=== PATIENT | female | born 1965 | race Caucasian/White ===

== ENCOUNTER 2016-04-01 11:36 | Emergency (ER) | payer BC ==
--- NOTE | 2016-04-01 13:16 | ED ---
Rah Li Aidan, scribed for Lyle Peña MD on 04/01/16 at 1304 . Abdominal Pain/Female - HPI Summary HPI Summary: 50 y/o female presents to the ED via EMS with a complaint of acute, moderate-to- severe, intermittent episodes of right-sided abdominal pain. Initially, she had roughly 1-2 episodes, lasting roughly 10 minutes each, per week. More recently, however, she has had more frequent episodes that can last up to an hour. This morning, she had a severe episode at 0830. Associated symptoms include bloating. Pt denies any flank pain, Hx of kidney stones, or changes in urination. Ct scan last November revealed no kidney stones. Hx of hernia repair in 2012. Currently, the patient has no pain and would like to be discharged home. She has agreed to follow this up with her PCP. - History of Current Complaint Stated Complaint: ABD PAIN Time Seen by Provider: 04/01/16 12:41 Hx Obtained From: Patient Hx Last Menstrual Period: 50 y/o ?: No Onset/Duration: Sudden Onset, Lasting Weeks, Still Present Timing: Intermittent Episode Lasting Severity Initially: Moderate Severity Currently: None Pain Intensity: 0 - no pain currently Pain Scale Used: 0-10 Numeric Location: Discrete At: RUQ, Discrete At: RLQ Radiates: No Character: Sharp Aggravating Factor(s): Other: - unknown Alleviating Factor(s): Other: - unknown Associated Signs and Symptoms: Positive: Other: - bloating Allergies/Adverse Reactions: Allergies Allergy/AdvReac Type Severity Reaction Status Date / Time No Known Allergies Allergy Verified 11/27/15 11:46 PMH/Surg Hx/FS Hx/Imm Hx - Surgical History Surgery Procedure, Year, and Place: HERNIA REPAIR 2013 Infectious Disease History: Denies: Traveled Outside the [place] in Last 30 Days - Family History Known Family History: Positive: Hypertension - Social History Occupation: Employed Full-time Lives: Alone Alcohol Use: None Substance Use Type: Reports: None Smoking Status (MU): Light Every Day Tobacco Smoker Type: Cigarettes Have You Smoked in the Last Year: No Review of Systems Constitutional: Negative Eyes: Negative ENT: Negative Cardiovascular: Negative Respiratory: Negative Gastrointestinal: Other - SOME BLOATING Positive: Abdominal Pain. Negative: Diarrhea, Nausea Genitourinary: Negative Musculoskeletal: Negative Skin: Negative Neurological: Negative Psychological: Normal All Other Systems Reviewed And Are Negative: Yes Physical Exam Triage Information Reviewed: Yes Vital Signs Reviewed: Yes Appearance: Positive: Well-Appearing, No Pain Distress Skin: Positive: Warm, Skin Color Reflects Adequate Perfusion, Dry Head/Face: Positive: Normal Head/Face Inspection Eyes: Positive: EOMI, BERTA ENT: Positive: Normal ENT inspection Neck: Positive: Supple, Nontender Respiratory/Lung Sounds: Positive: Clear to Auscultation, Breath Sounds Present Cardiovascular: Positive: RRR Abdomen Description: Positive: Soft Bowel Sounds: Positive: Present Musculoskeletal: Positive: Strength/ROM Intact Neurological: Positive: Sensory/Motor Intact, Alert, Oriented to Person Place, Time Psychiatric: Positive: Affect/Mood Appropriate Abdominal Pain Fem Course/Dx - Course Course Of Treatment: NO PAIN IN ED. PATIENT REPORTS SHE IS SEEING HER PRIMARY CARE DOCTOR AND SPECIALIST FOR THIS RECURRENT ABDOMINAL PAIN. DISCHARGE HOME STABLE. - Diagnoses Provider Diagnoses: Abdominal pain Discharge - Discharge Plan Condition: Stable Disposition: HOME Patient Education Materials: Abdominal Pain (ED) Forms: *Work Release Referrals: Cassandra Ramos MD [Medical Doctor] - Additional Instructions: FOLLOW UP WITH YOUR DOCTOR. RETURN TO THE EMERGENCY DEPARTMENT FOR ANY WORSENING OF YOUR CONDITION; PAIN, FEVER, VOMITING, YOU FEEL ILL OR QUESTIONS OR CONCERNS. The documentation as recorded by the Rah sanders Aidan accurately reflects the service I personally performed and the decisions made by me, Lyle Peña MD.
== END 2016-04-01 13:32 | disposition home or self-care (01) ==
LOC: ED 11:36
DX: R10.9 Unspecified abdominal pain (principal); F17.210 Nicotine dependence, cigarettes, uncomplicated; Z87.442 Personal history of urinary calculi
CPT/HCPCS: 99282

== ENCOUNTER 2022-07-20 13:36 | Inpatient (IN) ==
[2022-07-20 14:45] LABS: ABS Lymphocytes 0.7 10^3/uL (1.0-4.8); ABS Monocytes 0.2 10^3/uL (0.0-0.9); ABS Neutrophils 9.9 10^3/uL (1.5-7.6); ABS Nucleated RBC 0.01 10^3/ul; Eosinophil % 0.1 %; Hematocrit 27.9 % (35-45); Hemoglobin 9.7 g/dL (11.5-14.3); Lymphocyte % 6.5 %; Mean Corpuscular Hemoglobin 27.1 pg (27-33); Mean Corpuscular Hgb Conc 34.6 g/dL (31-36); Mean Corpuscular Volume 78.5 fL (80-97); Mean Platelet Volume 7.7 fL (7.5-11.2); Nucleated Red Blood Cells % 0.1 /100 WBC (0.0-0.4); Platelet Count 562 10^3/uL (150-450); Red Blood Count 3.56 10^6/uL (3.63-4.92); White Blood Count 10.8 10^3/uL (3.8-11.8)
[2022-07-20] MEDS ORDERED: cefTRIAXone 1 gm/50 mL D5W 1 GM/50 ML BAG IV ONE (15:02)
[2022-07-20] MEDS ORDERED: Azithromycin 500 mg/250 ml NS 500 MG/250 ML BAG IVPB ONE (15:02)
[2022-07-20 15:08] LABS: High Sens Troponin Baseline 24 pg/mL (<15)
[2022-07-20 15:24] LABS: ALT 16 U/L (7-52); Albumin 3.7 g/dL (3.2-5.2); Albumin/Globulin Ratio 1.2 (1-3); Alkaline Phosphatase 64 U/L (35-149); Blood Urea Nitrogen 34 mg/dL (6-24); CO2 Carbon Dioxide 23 mmol/L (22-32); Calcium 8.5 mg/dL (8.6-10.3); Chloride 105 mmol/L (101-111); Creatinine, Serum 1.56 mg/dL (0.51-0.95); Globulin 3.1 g/dL (2-4); Glucose 166 mg/dL (70-100); Sodium 138 mmol/L (135-145); Total Protein 6.8 g/dL (6.4-8.9); eGFR CKD-EPI 38.8 (>60)
[2022-07-20 15:34] LABS: Anion Gap 10 mmol/L (2-16)
[2022-07-20] MEDS ORDERED: Iodixanol (CONTRAST) 320 MG/ML 100 ML SDV IV ONE (15:42)
[2022-07-20 16:01] LABS: High Sensitivity Troponin 1 Hr 23 pg/mL (<15)
[2022-07-20] MEDS ORDERED: Vancomycin 1,250 MG in NS 0.9% 250 ml 250 ML IVPB ONE (16:32)
[2022-07-20 17:48] LABS: Potassium Redraw 4.2 mmol/L (3.5-5.0)
[2022-07-20 18:43] LABS: Urine Appearance Cloudy; Urine Bilirubin Negative (Negative); Urine Blood 3+ (Negative); Urine Color Yellow; Urine Glucose Negative (Negative); Urine Ketones Negative (Negative); Urine Nitrite Negative (Negative); Urine Protein 2+(100 mg/dL) (Negative); Urine Urobilinogen Negative (Negative)
[2022-07-20 18:54] LABS: Urine Bacteria Absent (Absent); Urine Red Blood Cell 3+(>10/hpf) (Absent); Urine Squamous Epithelial Cell Present (Absent); Urine White Blood Cell 2+(11-20/hpf) (Absent)
[2022-07-20] MEDS ORDERED: NS 0.9% 1000 ml BAG 1,000 ML IV SCH ×2 (19:00→19:57)
[2022-07-20] MEDS ORDERED: Enoxaparin 40 MG/0.4 ML SYR SUBCUT SCH (19:00)
[2022-07-21 06:50] LABS: ABS Lymphocytes 2.1 10^3/uL (1.0-4.8); ABS Monocytes 0.6 10^3/uL (0.0-0.9); ABS Neutrophils 6.7 10^3/uL (1.5-7.6); Eosinophil % 0.4 %; Hematocrit 23.4 % (35-45); Hemoglobin 8.1 g/dL (11.5-14.3); Lymphocyte % 22.4 %; Mean Corpuscular Hemoglobin 27.3 pg (27-33); Mean Corpuscular Hgb Conc 34.7 g/dL (31-36); Mean Corpuscular Volume 78.7 fL (80-97); Mean Platelet Volume 7.2 fL (7.5-11.2); Platelet Count 436 10^3/uL (150-450); Red Blood Count 2.97 10^6/uL (3.63-4.92); Red Cell Distribution Width 12.9 % (12-17); White Blood Count 9.5 10^3/uL (3.8-11.8)
[2022-07-21 07:25] LABS: Calcium 7.7 mg/dL (8.6-10.3); Creatinine, Serum 1.38 mg/dL (0.51-0.95); Magnesium 1.7 mg/dL (1.9-2.7); Phosphorus 3.5 mg/dL (2.5-5.0); Potassium 3.9 mmol/L (3.5-5.0); eGFR CKD-EPI 44.9 (>60)
[2022-07-21 07:38] LABS: TSH Ultra Thyroid Stim Horm 1.42 mcIU/mL (0.34-5.60)
[2022-07-21 07:46] LABS: Ferritin 116.1 ng/mL (11-307)
[2022-07-21 07:49] LABS: Folate 16.41 ng/mL (5.90-24.80)
[2022-07-21] MEDS ORDERED: Magnesium Sulfate IV 3 GM in NS 0.9% 100 ml BAG 100 ML IVPB ONE (07:55)
[2022-07-21] MEDS ORDERED: cefTRIAXone 1 gm/50 mL D5W 1 GM/50 ML BAG IV SCH ×2 (09:00→15:00)
[2022-07-21] MEDS ORDERED: Acetylcysteine INHALATION SOL 200 MG/ML NEB.SOLN 10 ML INH ONE (10:09)
[2022-07-21] MEDS ORDERED: Sodium Chloride(INHALANT) 7% 4 ML NEB.SOLN INH ONE (11:12)
[2022-07-21] MEDS ORDERED: Albuterol 2.5mg/3 ml (0.083%) NEB.SOLN INH PRN (11:30)
[2022-07-21 11:36] LABS: C Reactive Protein 69.58 mg/L (<8.01)
[2022-07-21] MEDS: methylPREDNISolone SOD SUCC 40 mg/ml 1 ml VIAL IV SCH ×2 (11:51→18:35)
[2022-07-21] MEDS ORDERED: Vancomycin per Pharmacy 1 EA NOTE FOLLOW UP SCH (14:00)
[2022-07-21] MEDS: Cefepime 2 GM in Dextrose 2 GM/50 ML BAG IV SCH (14:41)
[2022-07-21] MEDS: Vancomycin 750 MG in NS 0.9% 250 ML IVPB SCH (15:28)
[2022-07-22] MEDS: Cefepime 2 GM in Dextrose 2 GM/50 ML BAG IV SCH ×2 (02:41→13:08)
[2022-07-22] MEDS: methylPREDNISolone SOD SUCC 40 mg/ml 1 ml VIAL IV SCH ×3 (03:25→18:21)
[2022-07-22] MEDS: Vancomycin 750 MG in NS 0.9% 250 ML IVPB SCH ×2 (03:31→15:29)
[2022-07-22 06:24] LABS: ABS Lymphocytes 0.8 10^3/uL (1.0-4.8); ABS Monocytes 0.4 10^3/uL (0.0-0.9); ABS Neutrophils 9.6 10^3/uL (1.5-7.6); Hematocrit 25.4 % (35-45); Hemoglobin 8.8 g/dL (11.5-14.3); Lymphocyte % 7.2 %; Mean Corpuscular Hemoglobin 27.4 pg (27-33); Mean Corpuscular Hgb Conc 34.8 g/dL (31-36); Mean Corpuscular Volume 78.7 fL (80-97); Mean Platelet Volume 7.3 fL (7.5-11.2); Platelet Count 495 10^3/uL (150-450); Red Blood Count 3.23 10^6/uL (3.63-4.92); Red Cell Distribution Width 12.9 % (12-17); White Blood Count 10.8 10^3/uL (3.8-11.8)
[2022-07-22 06:56] LABS: Anion Gap 5 mmol/L (2-16); CO2 Carbon Dioxide 25 mmol/L (22-32); Calcium 7.9 mg/dL (8.6-10.3); Chloride 107 mmol/L (101-111); Potassium 5.3 mmol/L (3.5-5.0); Sodium 137 mmol/L (135-145)
[2022-07-22 07:02] LABS: Blood Urea Nitrogen 37 mg/dL (6-24); Creatinine, Serum 1.43 mg/dL (0.51-0.95); Glucose 152 mg/dL (70-100)
[2022-07-22] MEDS ORDERED: NS 0.9% 1000 ml BAG 1,000 ML IV SCH (07:30)
[2022-07-22 13:20] LABS: Creatinine, Serum 1.28 mg/dL (0.51-0.95); Potassium 4.6 mmol/L (3.5-5.0); eGFR CKD-EPI 49.2 (>60)
[2022-07-22] MEDS ORDERED: Vancomycin Trough Check NOTE FOLLOW UP ONE (14:30)
[2022-07-22] MEDS: Pantoprazole VIAL 40 MG VIAL IV SCH ×2 (15:27→21:22)
[2022-07-23] MEDS: Cefepime 2 GM in Dextrose 2 GM/50 ML BAG IV SCH (02:11)
[2022-07-23] MEDS: methylPREDNISolone SOD SUCC 40 mg/ml 1 ml VIAL IV SCH ×3 (03:05→18:33)
[2022-07-23] MEDS: Vancomycin 750 MG in NS 0.9% 250 ML IVPB SCH (03:11)
[2022-07-23 06:15] LABS: ABS Lymphocytes 1.1 10^3/uL (1.0-4.8); ABS Monocytes 0.7 10^3/uL (0.0-0.9); ABS Neutrophils 13.3 10^3/uL (1.5-7.6); ABS Nucleated RBC 0.02 10^3/ul; Hematocrit 26.4 % (35-45); Lymphocyte % 7.6 %; Mean Corpuscular Hemoglobin 26.5 pg (27-33); Mean Platelet Volume 7.5 fL (7.5-11.2); Nucleated Red Blood Cells % 0.2 /100 WBC (0.0-0.4); Platelet Count 520 10^3/uL (150-450); Red Blood Count 3.38 10^6/uL (3.63-4.92); Red Cell Distribution Width 13.1 % (12-17); White Blood Count 15.1 10^3/uL (3.8-11.8)
[2022-07-23 06:58] LABS: Calcium 7.7 mg/dL (8.6-10.3); Creatinine, Serum 1.19 mg/dL (0.51-0.95); Magnesium 1.6 mg/dL (1.9-2.7); Potassium 4.7 mmol/L (3.5-5.0); eGFR CKD-EPI 53.7 (>60)
[2022-07-23] MEDS ORDERED: Magnesium Sulf 4 GM/100 ML IV 4,000 MG/100 ML BAG IVPB ONE (07:12)
[2022-07-23] MEDS: Pantoprazole VIAL 40 MG VIAL IV SCH ×2 (08:36→21:16)
[2022-07-23 11:50] LABS: Rheumatoid Factor < 10 IU/mL (<15)
[2022-07-23 12:04] LABS: Activated Partial Thrombo Time 24.6 seconds (26.0-38.0); INR 1.14 (0.88-1.18)
[2022-07-23] MEDS: Heparin 5000 UNITS/ML 1 mL VIAL SUBCUT SCH ×2 (14:26→21:16)
[2022-07-24] MEDS: Heparin 5000 UNITS/ML 1 mL VIAL SUBCUT SCH ×3 (06:03→21:30)
[2022-07-24 06:14] LABS: Hematocrit 27.3 % (35-45); Hemoglobin 9.2 g/dL (11.5-14.3); Mean Corpuscular Hemoglobin 26.7 pg (27-33); Mean Corpuscular Hgb Conc 33.8 g/dL (31-36); Mean Corpuscular Volume 78.8 fL (80-97); Mean Platelet Volume 7.5 fL (7.5-11.2); Platelet Count 558 10^3/uL (150-450); Red Blood Count 3.46 10^6/uL (3.63-4.92); White Blood Count 17.1 10^3/uL (3.8-11.8)
[2022-07-24 06:35] LABS: Calcium 7.8 mg/dL (8.6-10.3); Creatinine, Serum 1.04 mg/dL (0.51-0.95); Potassium 4.5 mmol/L (3.5-5.0); eGFR CKD-EPI 63.1 (>60)
[2022-07-24] MEDS ORDERED: Furosemide 40 mg/4 ml IV VIAL IV SLOW PU ONE (07:30)
[2022-07-24 08:37] LABS: ABS Monocytes 0.9 10^3/uL (0.0-0.9); ABS Neutrophils 14.2 10^3/uL (1.5-7.6); ABS Nucleated RBC 0.01 10^3/ul; Lymphocyte % 11.7 %
[2022-07-24] MEDS: methylPREDNISolone SOD SUCC 1,000 MG in NS 0.9% 100 ml BAG 100 ML IVPB SCH (10:53)
[2022-07-24] MEDS: Pantoprazole VIAL 40 MG VIAL IV SCH ×2 (10:53→21:30)
[2022-07-24 12:50] LABS: Myeloperoxidase Antibody 5.4 U; Proteinase 3 <0.2 U
[2022-07-24 16:51] LABS: Urine Creatinine Concentration 8.26 mg/dL (20.00-320.00)
[2022-07-24] MEDS: Albuterol/Ipratropium NEB.SOL (2.5/0.5 MG) 3 ML NEB.SOLN INH PRN (21:49)
[2022-07-25] MEDS: Heparin 5000 UNITS/ML 1 mL VIAL SUBCUT SCH ×3 (05:54→21:45)
[2022-07-25 06:49] LABS: ABS Lymphocytes 2.3 10^3/uL (1.0-4.8); ABS Monocytes 0.7 10^3/uL (0.0-0.9); ABS Neutrophils 14.1 10^3/uL (1.5-7.6); ABS Nucleated RBC 0.02 10^3/ul; Hematocrit 30.6 % (35-45); Hemoglobin 10.4 g/dL (11.5-14.3); Lymphocyte % 13.5 %; Mean Corpuscular Hemoglobin 26.6 pg (27-33); Mean Corpuscular Hgb Conc 33.9 g/dL (31-36); Mean Corpuscular Volume 78.4 fL (80-97); Mean Platelet Volume 7.3 fL (7.5-11.2); Nucleated Red Blood Cells % 0.1 /100 WBC (0.0-0.4); Platelet Count 678 10^3/uL (150-450); Red Cell Distribution Width 13.4 % (12-17); White Blood Count 17.1 10^3/uL (3.8-11.8)
[2022-07-25] MEDS: Albuterol/Ipratropium NEB.SOL (2.5/0.5 MG) 3 ML NEB.SOLN INH PRN (07:13)
[2022-07-25 07:28] LABS: Albumin 3.6 g/dL (3.2-5.2); Albumin/Globulin Ratio 1.3 (1-3); Calcium 8.3 mg/dL (8.6-10.3); Creatinine, Serum 1.22 mg/dL (0.51-0.95); Globulin 2.8 g/dL (2-4); Magnesium 1.6 mg/dL (1.9-2.7); Potassium 4.6 mmol/L (3.5-5.0); Total Bilirubin 0.7 mg/dL (0.2-1.0); Total Protein 6.4 g/dL (6.4-8.9); eGFR CKD-EPI 52.1 (>60)
[2022-07-25] MEDS: Pantoprazole VIAL 40 MG VIAL IV SCH (08:53)
[2022-07-25] MEDS: methylPREDNISolone SOD SUCC 1,000 MG in NS 0.9% 100 ml BAG 100 ML IVPB SCH (08:56)
[2022-07-25] MEDS ORDERED: Magnesium Sulf 4 GM/100 ML IV 4,000 MG/100 ML BAG IVPB ONE (09:42)
[2022-07-25] MEDS ORDERED: methylPREDNISolone SOD SUCC 125 mg 2 ML VIAL IV PRN (13:51)
[2022-07-25 14:22] LABS: Hepatitis B Surface Antigen Nonreactive (Nonreactive)
[2022-07-25 14:27] LABS: Hepatitis A Ab IgM Negative (Negative); Hepatitis B Core IgM Nonreactive (Nonreactive)
[2022-07-25 14:39] LABS: Hepatitis C Antibody Negative (Negative)
[2022-07-26] MEDS: Heparin 5000 UNITS/ML 1 mL VIAL SUBCUT SCH ×3 (05:12→20:41)
[2022-07-26 06:00] LABS: Hematocrit 26.3 % (35-45); Hemoglobin 9.2 g/dL (11.5-14.3); Mean Corpuscular Hemoglobin 27.4 pg (27-33); Mean Corpuscular Hgb Conc 34.8 g/dL (31-36); Mean Corpuscular Volume 78.5 fL (80-97); Mean Platelet Volume 7.3 fL (7.5-11.2); Platelet Count 499 10^3/uL (150-450); Red Blood Count 3.35 10^6/uL (3.63-4.92); Red Cell Distribution Width 13.4 % (12-17); White Blood Count 21.6 10^3/uL (3.8-11.8)
[2022-07-26 06:25] LABS: ABS Lymphocytes 0.7 10^3/uL (1.0-4.8); ABS Monocytes 0.7 10^3/uL (0.0-0.9); ABS Neutrophils 20.1 10^3/uL (1.5-7.6); ABS Nucleated RBC 0.05 10^3/ul; Lymphocyte % 3.4 %; Nucleated Red Blood Cells % 0.2 /100 WBC (0.0-0.4)
[2022-07-26 06:46] LABS: Calcium 7.9 mg/dL (8.6-10.3); Creatinine, Serum 1.11 mg/dL (0.51-0.95); Magnesium 1.7 mg/dL (1.9-2.7); Potassium 4.4 mmol/L (3.5-5.0); eGFR CKD-EPI 58.3 (>60)
[2022-07-26] MEDS ORDERED: Magnesium Sulfate IV 3 GM in NS 0.9% 100 ml BAG 100 ML IVPB ONE (07:30)
[2022-07-26] MEDS: Pantoprazole VIAL 40 MG VIAL IV SCH (07:49)
[2022-07-26] MEDS: methylPREDNISolone SOD SUCC 1,000 MG in NS 0.9% 100 ml BAG 100 ML IVPB SCH (10:04)
[2022-07-26 12:06] LABS: Urine Creatinine 72.41 mg/dL
[2022-07-26 13:02] LABS: UR Microalbumin (mg/L) 101.6 mg/L; Urine Microalbumin/Creatinine 140.3 mcg/mg (<31)
[2022-07-26 13:27] LABS: Complement C3 118 mg/dL (75 - 175)
[2022-07-26 13:49] LABS: Cytomegalovirus IgG Antibody Negative (Negative)
[2022-07-26 17:57] LABS: JO-1 Antibody <0.2 U; RNP Antibody, IgG 0.8 U; SS-A/Ro Antibody <0.2 U; SS-B/La Antibody <0.2 U; Scl 70 Ab, IgG, S <0.2 U; Sm (Smith) IgG Antibody 0.5 U
[2022-07-26 21:21] LABS: ANA Pattern: Homogeneous
[2022-07-27] MEDS: Heparin 5000 UNITS/ML 1 mL VIAL SUBCUT SCH ×3 (05:48→21:35)
[2022-07-27 06:33] LABS: ABS Lymphocytes 0.5 10^3/uL (1.0-4.8); ABS Monocytes 0.8 10^3/uL (0.0-0.9); ABS Neutrophils 12.5 10^3/uL (1.5-7.6); ABS Nucleated RBC 0.01 10^3/ul; Hematocrit 26.2 % (35-45); Hemoglobin 9.1 g/dL (11.5-14.3); Lymphocyte % 3.6 %; Mean Corpuscular Hemoglobin 27.7 pg (27-33); Mean Corpuscular Hgb Conc 34.9 g/dL (31-36); Mean Corpuscular Volume 79.4 fL (80-97); Mean Platelet Volume 7.3 fL (7.5-11.2); Platelet Count 445 10^3/uL (150-450); Red Cell Distribution Width 13.3 % (12-17); White Blood Count 13.8 10^3/uL (3.8-11.8)
[2022-07-27 06:50] LABS: Calcium 7.8 mg/dL (8.6-10.3); Creatinine, Serum 1.03 mg/dL (0.51-0.95); Magnesium 1.7 mg/dL (1.9-2.7); Potassium 4.3 mmol/L (3.5-5.0); eGFR CKD-EPI 63.8 (>60)
[2022-07-27] MEDS ORDERED: Magnesium Sulfate IV 3 GM in NS 0.9% 100 ml BAG 100 ML IVPB ONE (07:10)
[2022-07-27] MEDS: methylPREDNISolone SOD SUCC 1,000 MG in NS 0.9% 100 ml BAG 100 ML IVPB SCH (09:32)
[2022-07-27] MEDS: Pantoprazole VIAL 40 MG VIAL IV SCH (09:33)
[2022-07-28] MEDS: Heparin 5000 UNITS/ML 1 mL VIAL SUBCUT SCH ×3 (06:15→21:05)
[2022-07-28 07:44] LABS: Hematocrit 29.4 % (35-45); Hemoglobin 9.9 g/dL (11.5-14.3); Mean Corpuscular Hgb Conc 33.8 g/dL (31-36); Mean Corpuscular Volume 79.8 fL (80-97); Mean Platelet Volume 7.6 fL (7.5-11.2); Platelet Count 486 10^3/uL (150-450); Red Blood Count 3.68 10^6/uL (3.63-4.92); Red Cell Distribution Width 13.8 % (12-17); White Blood Count 14.8 10^3/uL (3.8-11.8)
[2022-07-28 08:01] LABS: Calcium 7.9 mg/dL (8.6-10.3); Creatinine, Serum 1.11 mg/dL (0.51-0.95); Magnesium 1.8 mg/dL (1.9-2.7); Potassium 4.4 mmol/L (3.5-5.0); eGFR CKD-EPI 58.3 (>60)
[2022-07-28] MEDS ORDERED: Magnesium Sulfate 2 gm BAG 2 GM/50 ML BAG IVPB ONE (08:28)
[2022-07-28 08:42] LABS: ABS Lymphocytes 0.5 10^3/uL (1.0-4.8); ABS Neutrophils 13.3 10^3/uL (1.5-7.6); ABS Nucleated RBC 0.03 10^3/ul; Eosinophil % 0.1 %; Lymphocyte % 3.5 %; Nucleated Red Blood Cells % 0.2 /100 WBC (0.0-0.4); RBC Morphology Normal (Normal)
[2022-07-28] MEDS: methylPREDNISolone SOD SUCC 1,000 MG in NS 0.9% 100 ml BAG 100 ML IVPB SCH (09:24)
[2022-07-28] MEDS: Pantoprazole VIAL 40 MG VIAL IV SCH (09:25)
[2022-07-29] MEDS: Heparin 5000 UNITS/ML 1 mL VIAL SUBCUT SCH ×3 (05:32→21:41)
[2022-07-29 06:04] LABS: Hematocrit 30.6 % (35-45); Hemoglobin 10.3 g/dL (11.5-14.3); Mean Corpuscular Hemoglobin 26.5 pg (27-33); Mean Corpuscular Hgb Conc 33.8 g/dL (31-36); Mean Corpuscular Volume 78.4 fL (80-97); Mean Platelet Volume 7.5 fL (7.5-11.2); Platelet Count 473 10^3/uL (150-450); Red Cell Distribution Width 13.8 % (12-17); White Blood Count 13.9 10^3/uL (3.8-11.8)
[2022-07-29 06:14] LABS: Calcium 8.2 mg/dL (8.6-10.3); Creatinine, Serum 1.12 mg/dL (0.51-0.95); Magnesium 1.7 mg/dL (1.9-2.7); Potassium 4.5 mmol/L (3.5-5.0); eGFR CKD-EPI 57.7 (>60)
[2022-07-29] MEDS ORDERED: Magnesium Sulfate 2 gm BAG 2 GM/50 ML BAG IVPB ONE (06:54)
[2022-07-29 09:35] LABS: ABS Lymphocytes 0.4 10^3/uL (1.0-4.8); ABS Monocytes 0.8 10^3/uL (0.0-0.9); ABS Neutrophils 12.7 10^3/uL (1.5-7.6); ABS Nucleated RBC 0.02 10^3/ul; Nucleated Red Blood Cells % 0.1 /100 WBC (0.0-0.4)
[2022-07-29] MEDS: Pantoprazole VIAL 40 MG VIAL IV SCH (09:57)
[2022-07-29 11:21] LABS: Cryoglobulin Negative %ppt (Negative)
[2022-07-30] MEDS: Heparin 5000 UNITS/ML 1 mL VIAL SUBCUT SCH (05:25)
[2022-07-30 06:43] LABS: Creatinine, Serum 0.99 mg/dL (0.51-0.95); Magnesium 1.6 mg/dL (1.9-2.7); Potassium 4.1 mmol/L (3.5-5.0); eGFR CKD-EPI 66.9 (>60)
[2022-07-30] MEDS ORDERED: Magnesium Sulf 4 GM/100 ML IV 4,000 MG/100 ML BAG IVPB ONE (07:04)
[2022-07-30] MEDS: Pantoprazole VIAL 40 MG VIAL IV SCH (09:23)
[2022-07-30 09:35] VITALS: BP 100/60
== END 2022-07-30 13:20 | disposition home or self-care (01) | DRG 133 ==
LOC: ED 13:36 → EDHOLD 13:36 → OBSVTOIN 16:23 → INTOOBSV 16:23 → SUATTDRO 16:23 → MED 17:17
PROVIDERS: ADMIT Internal Medicine; ATTEND Internal Medicine